=== PATIENT | female | born 1995 | race Asian ===

== ENCOUNTER 2025-06-16 15:24 | Emergency (ER) | payer OTHER, SELFPAY ==
--- OUTSIDE RECORDS SUMMARY | 2025-04-18 14:30 | XMS_ITS | Encounter Summary ---
Author Organization [employer] ([place], [place], [place], [place], [place]) Address [address] [place] [address] Care Team Providers Care Chronometer Assembler And Adjuster Name Role Phone Lyle Cormier DO Primary Care Provider [phone] Reason for Referral * Consultation (Routine) - Authorized Specialty Diagnoses / Procedures Referred By Lucia t Referred To Contact Behavioral Health Diagnoses Generalized anxiety disorder Major depressive disorder Borderline personality disorder (HCC) Lyle Cormier DO [address] [place], [place] [address], [address] [address] Phone: tel: fax: [facility] [address], [address] [place] [id number] Phone: tel: fax: Referral ID Status Reason Start Date Expiration Date Visits Requested Visits Authorized [id number] Authorized Specialty Services Required 04/18/2025 04/18/2026 1 1 * Consultation (Routine) - Authorized Specialty Diagnoses / Procedures Referred By Contac t Referred To Contact Neurology Diagnoses Migraine without aura and without status migrainosus, not intractable Lyle Cormier DO [address] [place], [place] [address] , [address] [address] Phone: tel: fax: [facility] Neurology - [address] [facility] [address] [place] [address] Phone: tel: fax: Referral ID Status Reason Start Date Expiration Date Visits Requested Visits Authorized [id number] Authorized Specialty Services Required 04/18/2025 04/18/2026 1 1 Reason for Visit * Reason Comments Establish Care Patient here to [facility] is not fasting today. Patient has a history of Migraines. Encounter Details Date Type Department Care Team (Late st Contact Info) Description 04/18/2025 3:30 PM EDT Office Visit [facility] [address] [place] [address] [address] [place] [address] Lyle Cormier DO [address] [facility] [address] [place] [address] Generalized anxiety disorder (Primary Dx); Major depressive disorder; Migraine without aura and without status migrainosus, not intractable; Overweight; Screening for endocrine, metabolic and immunity disorder; Screening for HIV (human immunodeficiency virus); Encounter for hepatitis C screening test for low risk patient; Borderline personality disorder (HCC) Social History Tobacco Use Types Packs/Day Years Used Date Smoking Tobacco: Never Assessed Comments Unknown Sex and Gender Information Value Date Recorded Sex Assigned at Not on file Legal Sex Female 11:50 AM CDT Gender Identity Not on file Sexual Orientation Not on file documented as of this encounter Last Filed Vital Signs Vital Sign Reading Time Taken Comments Blood Pressure 108/63 04/18/2025 3:24 PM EDT Pulse 60 04/18/2025 3:24 PM EDT Temperature 36.2 C (97.2 F) 04/18/2025 3:24 PM EDT Respiratory Rate 18 04/18/2025 3:24 PM EDT Oxygen Saturation 98% 04/18/2025 3:24 PM EDT Inhaled Oxygen Concentration - - Weight 80.3 kg (177 lb) 04/18/2025 3:24 PM EDT Height 165.1 cm (5' 5 ) 04/18/2025 3:24 PM EDT Body Mass Index 29.45 04/18/2025 3:24 PM EDT documented in this encounter Functional Status * Over the past 2 weeks, how often have you been bothered by any of the following problems? Question Answer Date of Assessment Author Little interest or pleasure in doing things More than half the days 04/18/2025 3:41 PM CDT Diamante Urbano Feeling down, depressed, or hopeless More than half the days 04/18/2025 3:41 PM CDT Diamante Urbano Patient Health Questionnaire-2 Score 4 04/18/2025 3:41 PM CDT Diamante Urbano * Question Answer Date of Assessment Author Trouble falling or staying a sleep, or sleeping too much Not at all 04/18/2025 3:41 PM CDT Diamante Urbano Feeling tired or having cole le energy Several days 04/18/2025 3:41 PM CDT Diamante Urbano Poor appetite or overeating Several days 04/18/2025 3: 41 PM CDT Diamante Urbano Feeling bad about yourself - or that you are a failure or have let yourself or your family down Not at all 04/18/2025 3:41 PM CDT Diamante Urbano Trouble concentrating on thi ngs, such as reading the newspaper or watching television Several days 04/18/2025 3:41 PM CDT Diamante Urbano Moving or speaking so slowly that other people could have noticed? Or the opposite - being so fidgety or restless that you have been moving around a lot more than usual. Not at all 04/18/2025 3:41 PM CDT Diamante Urbano Thoughts that you would be b brenden off or hurting yourself in some way Not at all 04/18/2025 3:41 PM CDT Diamante Urbano Patient Health Questionnaire -9 Score 7 04/18/2025 3:41 PM CDDiamante Shabazz * If you checked off any problems on this questionnaire so far, Question Answer Date of Assessment Author How difficult have these problems made it for you to do your work, take care of things at home, or get along with other people? Not difficult at all 04/18/2025 3:41 PM CDDiamante Shabazz * Over the last 2 weeks, how often have you been bothered by any of the following problems? Question Answer Date of Assessment Author Feeling nervous, anxious, or on edge 3 12/2024 3:00 PM CDT Prouse, Diamante Not being able to stop or co ntrol worrying 3 04/18/2025 3:00 PM CDT Prouse, Diamante Worrying too much about different things 3 04/18/2025 3:00 PM CDT Prouse, Diamante Trouble relaxing 3 04/18/2025 3:00 PM CDT P rouse, Diamante Being so restless that it is hard to sit still 1 04/18/2025 3:00 PM CDT Prouse, Diamante Becoming easily annoyed or irritable 0 12/2024 3:00 PM CDT Prouse, Diamante Feeling afraid as if somethi ng awful might happen 2 04/18/2025 3:00 PM CDT Projayce, Diamante ALEK-7 Total Score 15 04/18/2025 3:00 PM CDT Projayce, Diamante documented as of this encounter Progress Notes * Lyle Cormier, - 04/18/2025 3:30 PM EDT Subjective: Charlene Onofre is a 30 y.o. female. Chief Complaint Patient presents with Establish Care Patient here to Establish Care is not fasting today. Patient has a history of Migraines. The patient is coming in to establish care. The patient has a history of anxiety and migraines. Recently, having more frequent migraines. Normally takes Excedrin to assist. Pain is normally unilateral and behind her eye. Sensitivity to light and sound with nausea. Last for 24-48 hours. Recently in the past year, has been getting them 4-5 times a month. Made worse with poor sleep and stress. No sym ptoms today. No aura prior to the headaches started. The patient is scared about medications. Movedto the two years ago. Was seeing a therapist and psychiatrist in the past who started the Prozac. Was diagnosed with borderline personality disorder and generalized anxiety disorder. Has not seen any therapist for years, but continued Prozac through her past PCP in [place]. Reports being on quetiapine and stopped it in the past. Wants to stop the Prozac in the future. Outpatient Medications Prior to Visit Medication Sig Dispense Refill FLUoxetine (PROzac) 40 MG capsule Take 1 capsule (40 mg total) by mouth daily. No facility-administered medications prior to visit. Review of Systems Constitutional: Negative for chills and fever. HENT: Negative. Eyes: Positive for photophobia. Respiratory: Negative for cough, shortness of breath and wheezing. Cardiovascular: Negative for chest pain. Gastrointestinal: Positive for nausea. Negative for diarrhea and vomiting. Neurological: Positive for headaches. All other systems reviewed and are negative. No past medical history on file. No past surgical history on file. No family history on file. Social History: Objective: BP 108/63 (BP Location: Left arm, Patient Position: Sitting, Cuff Size: Adult) Pulse 60 Temp 97.2 ??F (36.2 ??C) (Skin) Resp 18 Ht 1.651 m (5' 5 ) Wt 80.3 kg (177 lb) SpO2 98% BMI 29.45kg/m?? Vision and Hearing: No results found. Physical Exam Vitals reviewed. Constitutional: General: She is not in acute distress. Appearance: Normal appearance. HENT: Head: Normocephalic. Right Ear: External ear normal. Left Ear: External ear normal. Nose: Nose normal. Eyes: Extraocular Movements: Extraocular movements intact. Conjunctiva/sclera: Conjunctivae normal. Pupils: Pupils are equal, round, and reactive to light. Cardiovascular: Rate and Rhythm: Normal rate and regular rhythm. Pulmonary: Effort: Pulmonary effort is normal. No respiratory distress. Breath sounds: Normal breath sounds. No wheezing, rhonchi or rales. Abdominal: General: Abdomen is flat. Musculoskeletal: Cervical back: Normal range of motion. Skin: Coloration: Skin is not pale. Findings: No erythema or rash. Neurological: Mental Status: She is alert and oriented to person, place, and time. Mental status is at baseline. Psychiatric: Mood and Affect: Mood is anxious. Behavior: Behavior normal. Thought Content: Thought content normal. Judgment: Judgment normal. No results found for: CBCDIF , [id number] , LIPIDS , LABA1C , TSH Radiology Results (last 7 days) No results found for the last 168 hours. Assessment: 1. Generalized anxiety disorder 2. Major depressive disorder 3. Migraine without aura and without status migrainosus, not intractable 4. Overweight 5. Screening for endocrine, metabolic and immunity disorder 6. Screening for HIV (human immunodeficiency virus) 7. Encounter for hepatitis C screening test for low risk patient 8. Borderline personality disorder (HCC) Discussion and Summary: The patient is notably anxious in office today. The way that she describes her headaches sounds very typical for a migraine disorder. However, she is hesitant to start any new medications that may assist her symptoms such as sumatriptan or topiramate. Because of her hesitancy to start any medications, we will refer the patient to neurology to see if they have any alternative therapeutic recommenda tions. In a similar vein, the patient does not seem to have adequate control of her anxiety on Prozac, even if she wants to eventually wean off of the medication. I told the patient that I do not think it is a good idea to try weaning off of the medication at this time based on my clinical opinion. We will refer the patient to behavioral health for counseling services. We will hold off on a psychiatry referral for now per patient preference. However, if counseling and/or myself agree that medication adjustment is warranted, we may recommend seeing the psychiatrist at some point in the future. Baseline fasting labs ordered as noted below. Will plan to see the patient back in 1 to 2 months for an annual physical. Depression Screen: (PHQ9 > 10 Likely Major Depression, 5-9 = Mild depression, 10-14= Moderate depression, 15-19 Moderately severe depression, > 20 =severe depression) PHQ2 = Patient Health Questionnaire-2 Score: 4 PHQ9 = Patient Health Questionnaire-9 Score: 7 Plan Provider Interpretation: Positive. referral to mental health provider Anxiety Screening: (Score 0-4: Minimal Anxiety. Score 5-9: Mild Anxiety. Score 10-14: Moderate Anxiety. Score greater than 15: Severe Anxiety.) ALEK-7: ALEK-7 Total Score: 15 (04/18/2025 3:00 PM) Plan Provider Interpretation: Positive. On Prozac. Referral to for additional therapy. Plan: Discontinued Medications No medications on file New Prescriptions No medications on file Modified Medications Modified Medication Previous Medication FLUOXETINE (PROZAC) 40 MG CAPSULE FLUoxetine (PROzac) 40 MG capsule Take 1 capsule (40 mg total) by mouth daily. Take 1 capsule (40 mg total) by mouth daily. Orders Placed This Encounter Procedures CBC with platelet count + automated diff Standing Status: Future Number of Occurrences: 1 Standing Expiration Date: 04/18/2026 Order Specific Question: Release to patient Answer: Immediate [1] Comprehensive metabolic panel Standing Status: Future Number of Occurrences: 1 Standing Expiration Date: 07/18/2025 Lipid panel Standing Status: Future Number of Occurrences: 1 Standing Expiration Date: 04/18/2026 Hemoglobin A1c Standing Status: Future Number of Occurrences: 1 Standing Expiration Date: 04/18/2026 Order Specific Question: Release to patient Answer: Immediate [1] Hepatitis C antibody Standing Status: Future Number of Occurrences: 1 Standing Expiration Date: 04/18/2026 Order Specific Question: Release to patient Answer: Immediate [1] HIV-1 Antigen with HIV-1/2 Antibody Standing Status: Future Number of Occurrences: 1 Standing Expiration Date: 04/18/2026 Order Specific Question: Release to patient Answer: Immediate [1] TSH W/REFLEX TO FT4 Standing Status: Future Number of Occurrences: 1 Standing Expiration Date: 04/18/2026 Order Specific Question: Release to patient Answer: Immediate [1] Ambulatory referral to Neurology Standing Status: Future Standing Expiration Date: 04/18/2026 Referral Priority: Routine Referral Type: Consultation Referral Reason: Specialty Services Required Requested Specialty: Neurology Number of Visits Requested: 1 Ambulatory referral to Behavioral Health Standing Status: Future Standing Expiration Date: 04/18/2026 Referral Priority: Routine Referral Type: Consultation Referral Reason: Specialty Services Required Requested Specialty: Behavioral Health Number of Visits Requested: 1 Return in about 4 weeks (around 05/16/2025) for Annual Physical. This note was partially written using the assistance of [employer] dictation. While an effort to proofread the note has been performed, dictation errors may still be present. Lyle Cormier DO Primary Care Physician [place] [address], [address] [place] [id number] 04/18/2025 3:28 PM documented in this encounter Miscellaneous Notes * Result Encounter Note - Lyle Corimer DO - 04/18/2025 3:30 PM EDT Let patient know: Your labs show elevation in your LDL cholesterol. I'm not going to prescribe any medications yet, but I would encourage regular aerobic exercise and healthy food options, in particular eating more foods high in omega-3 fatty acids instead of fatty/greasy foods. We should continue to regularly monitor your cholesterol over time. documented in this encounter Plan of Treatment Scheduled Referrals Name Type Priority Associated Diagnoses Orde r Schedule Ambulatory referral to Neurology Outpatient Referral Routine Migraine without aura and without status migrainosus, not intractable Expected: 04/18/2025, Expires: 04/18/2026 Ambulatory referral to Behavioral Health Outpatient Referral Routine Generalized anxiety disorder Major depressive disorder Borderline personality disorder (HCC) Expected: 04/18/2025, Expires: 04/18/2026 documented as of this encounter Procedures Procedure Name Priority Date/Time Associated Diagnosis Comments TSH W/REFLEX TO FT4 Routine 05/09/2025 1 1:07 AM EDT Generalized anxiety disorder Major depressive disorder Overweight HIV-1 ANTIGEN WITH HIV-1/2 ANTIBODY Routine 05/09/2025 11:07 AM EDT Screening for HIV (human immunodeficiency virus) HEPATITIS C ANTIBODY Routine 05/09/2025 11:07 AM EDT Encounter for hepatitis C screening test for low risk patient CBC W/PLT COUNT & AUTO DIFFERENTIAL Routine 05/09/2025 11:07 AM EDT Overweight Screening for endocrine, metabolic and immunity disorder HEMOGLOBIN A1C Routine 05/09/2025 11:07 AM EDT Overweight Screening for endocrine, metabolic and immunity disorder LIPID PANEL Routine 05/09/2025 11:07 AM EDT Overweight Screening for endocrine, metabolic and immunity disorder COMPREHENSIVE METABOLIC PANEL Routine 05/09/2025 11:07 AM EDT Overweight Screening for endocrine, metabolic and immunity disorder documented in this encounter Results * TSH W/REFLEX TO FT4 (05/09/2025 11:07 AM EDT) TSH 3.760 0.450 - 4.500 uIU/mL [facility] 05/09/2025 11:0 7 AM EDT 05/09/2025 Narrative [facility] - 05/10/2025 10:07 AM EDT Performed at: [address] [place] [id number] Front End Web Developer: Spencer Paniagua PhD, Phone: [phone] [employer] DO LAB BLOOD ORDERABLES Final Resul t Performing Organization Address City/[facility] Co de Phone Number [facility] * HIV-1 Antigen with HIV-1/2 Antibody (05/09/2025 11:07 AM EDT) [facility] HIV Screen 4th Generation wRfx Non Reactive Non Reactive [facility] Comment: HIV-1/HIV-2 antibodies and HIV-1 p24 antigen were NOT detected. There is no laboratory evidence of HIV infection. HIV Negative Blood 05/09/2025 11:0 7 AM EDT 05/09/2025 Narrative [facility] - 05/10/2025 10:07 AM EDT Performed at: [address] [id number] Front End Web Developer: Spencer Paniagua PhD, Phone: [phone] [employer] [facility] LAB BLOOD ORDERABLES Final Resul t Performing Organization Address [facility] de Phone Number [facility] * Hepatitis C antibody (05/09/2025 11:07 AM EDT) Pathologist [facility] Hep C Virus Ab Non Reactive Non Reactive [facility] Comment: HCV antibody alone does not differentiate between previously resolved infection and active infection. Equivocal and Reactive HCV antibody results should be followed up with an HCV RNA test to support the diagnosis of active HCV infection. Blood 05/09/2025 11:0 7 AM EDT 05/09/2025 Narrative [facility] - 05/10/2025 10:07 AM EDT Performed at: [address] [place] [id number] Front End Web Developer: Spencer Paniagua PhD, Phone: [phone] [employer] DO LAB BLOOD ORDERABLES Final Resul t Performing Organization Address City/[facility]/ZIP Co de Phone Number [facility] * Hemoglobin A1c (05/09/2025 11:07 AM EDT) Pathologist [facility] Hemoglobin A1c 5.5 4.8 - 5.6 % [facility] Comment: Prediabetes: 5.7 - 6.4 Diabetes: >6.4 Glycemic control for adults with diabetes: <7.0 Blood 05/09/2025 11:0 7 AM EDT 05/09/2025 Narrative [facility] - 05/10/2025 10:07 AM EDT Performed at: 01 - [address] [id number] Front End Web Developer: Spencer Paniagua PhD, Phone: [phone] [employer] DO LAB BLOOD ORDERABLES Final Resul t Performing Organization Address [facility] de Phone Number [facility] * (ABNORMAL) Lipid panel (05/09/2025 11:07 AM EDT) [facility] Cholesterol, Total 229(H) 100 - 199 mg/dL [facility] Triglycerides 84 0 - 149 mg/dL [facility] HDL Cholesterol 46 >39 mg/dL [facility] VLDL Cholesterol Aldo 15 5 - 40 mg/dL [facility] LDL Calculated 168(H) 0 - 99 mg/dL [facility] Blood 05/09/2025 11:0 7 AM EDT 05/09/2025 Narrative [facility] - 05/10/2025 10:07 AM EDT Performed at: 01 - [address] [id number] Front End Web Developer: Spencer Paniagua PhD, Phone: [phone] [employer] DO LAB BLOOD ORDERABLES Final Resul t Performing Organization Address [facility]/ZIP Co de Phone Number [facility] * (ABNORMAL) Comprehensive metabolic panel (05/09/2025 11:07 AM EDT) Glucose, Serum 82 70 - 99 mg/dL [facility] BUN 11 6 - 20 mg/dL [facility] Creatinine, Serum 0.78 0.57 - 1.00 mg/dL [facility] EGFR 105 >59 mL/min/1.73 [facility] BUN/Creatinine Ratio 14 9 - 23 [facility] Sodium, Serum 136 134 - 144 mmol/L [facility] Potassium, Serum 4.2 3.5 - 5.2 mmol/L [facility] Chloride, Serum 102 96 - 106 mmol/L [facility] Carbon Dioxide, Total 17(L) 20 - 29 mmol/L [facility] Calcium, Serum 9.4 8.7 - 10.2 mg/dL [facility] Protein, Total, Serum 7.3 6.0 - 8.5 g/dL [facility] Albumin, Serum 4.5 4.0 - 5.0 g/dL [facility] Globulin, Total 2.8 1.5 - 4.5 g/dL [facility] Bilirubin, Total 0.4 0.0 - 1.2 mg/dL [facility] Alkaline Phosphatase, S 63 41 - 116 IU/L [facility] Comment:Please note refere nce interval change AST (SGOT) 34 0 - 40 IU/L [facility] ALT (SGPT) 38(H) 0 - 32 IU/L [facility] Blood 05/09/2025 11:0 7 AM EDT 05/09/2025 Narrative [facility] - 05/10/2025 10:07 AM EDT Performed at: 01 - [facility] [id number] Front End Web Developer: Spencer Paniagua PhD, Phone: [phone] us Lyle Cormier DO LAB BLOOD ORDERABLES Final Resul t [facility] * (ABNORMAL) CBC with platelet count + automated diff (05/09/2025 11:07 AM EDT) WBC 7.4 3.4 - 10.8 x10E3/uL [facility] RBC 5.01 3.77 - 5.28 x10E6/uL [facility] Hemoglobin 14.1 11.1 - 15.9 g/dL [facility] Hematocrit 44.2 34.0 - 46.6 % [facility] MCV 88 79 - 97 fL [facility] MCH 28.1 26.6 - 33.0 pg [facility] MCHC 31.9 31.5 - 35.7 g/dL [facility] RDW 13.4 11.7 - 15.4 % [facility] Platelets 310 150 - 450 x10E3/uL [facility] % Neutros 45 Not Estab. % [facility] % Lymphs 45 Not Estab. % [facility] % Monos 7 Not Estab. % [facility] % Eos 2 Not Estab. % [facility] % Baso 1 Not Estab. % [facility] # Neutros 3.3 1.4 - 7.0 x10E3/uL [facility] # Lymphs 3.3(H) 0.7 - 3.1 x10E3/uL [facility] # Monos 0.6 0.1 - 0.9 x10E3/uL [facility] # Eos 0.1 0.0 - 0.4 x10E3/uL [facility] Baso (Absolute) 0.1 0.0 - 0.2 x10E3/uL [facility] % Immature Grans 0 Not Estab. % [facility] # Immature Grans 0.0 0.0 - 0.1 x10E3/uL [facility] Blood 05/09/2025 11:0 7 AM EDT 05/09/2025 Narrative [facility] - 05/10/2025 10:07 AM EDT Performed at: 01 - [facility] [address] [id number] Front End Web Developer: Spencer Paniagua PhD, Phone: [phone] Lyle Cormier DO LAB BLOOD ORDERABLES Final Resul t [facility] documented in this encounter Visit Diagnoses Diagnosis Generalized anxiety disorder- Primary Major depressive disorder Major depressive disorder, single episode, unspecified Migraine without aura and without status migrainosus, not intractable Overweight Screening for endocrine, metabolic and immunity disorder Screening for HIV (human immunodeficiency virus) Special screening examination for other specified viral diseases Encounter for hepatitis C screening test for low risk patient Borderline personality disorder (HCC) Borderline personality disorder documented in this encounter Care Teams Chronometer Assembler And Adjuster Relationship Specialty Start Date End Date Lyle Cormier DO [address] , [address] [address] PCP - General Family Medicine 04/18/25 documented as of this encounter
[2025-06-16] VITALS (7 sets, daily range): BP systolic 104–132; BP diastolic 69–78; PULSE 56–70; RESP 16–24; TEMP 36.6; O2SAT 99–100; BMI 29.0
--- NOTE | 2025-06-16 16:03 | ECG_ITS ---
APPROVED REPORT Exam: Resting ECG HR:64 bpm ECG Measurements Heart Rate 64 AXES WY 137 P 63 QRSd 93 QRS 70 QT 431 T 62 QTc 440 Conclusion SINUS RHYTHM WITH MARKED SINUS ARRHYTHMIA BORDERLINE ECG UNCONFIRMED REPORT Normal sinus rhythm. No ST elevation or depression. QTc of 4 and 40 Electronically signed by : NABEEL LUI, 06/19/2025 21:04:51
--- OUTSIDE RECORDS SUMMARY | 2025-06-16 16:24 | XMS_ITS | Clinical Summary ---
Author Organization [employer] ([place], [place], [place], [place], [place]) Address [address] [place] [address] Care Team Providers Care Professor Of Education Name Role Phone Lyle Cormier DO Primary Care Provider [phone] Allergies No known active allergies Medications * This document contains information received from the source organization and may not represent a complete record from that organization. FLUoxetine (PROzac) 40 MG capsuleIndicati ons:Generalized anxiety disorder,Major depressive disorder Take 1 capsule (40 mg total) by mouth daily. 90 capsule 3 04/18/2025 Active Active Problems Problem Noted Date Diagnosed Date Adjustment disorder with mixed anxiety and depre ssed mood 05/23/2025 Generalized anxiety disorder 04/18/2025 Major depressive disorder 04/18/2025 Migraines 04/18/2025 Encounters * This document contains information received from the source organization and may not represent a complete record from that organization. Date Type Department Care Team Description 04/18/2025 3:30 PM EDT Office Visit [facility] Primary Care [address] [place] [phone] Lyle Cormier DO Generalized anxiety disorder (Primary Dx); Major depressive disorder; Migraine without aura and without status migrainosus, not intractable; Overweight; Screening for endocrine, metabolic and immunity disorder; Screening for HIV (human immunodeficiency virus); Encounter for hepatitis C screening test for low risk patient; Borderline personality disorder (HCC) from Last 3 Months Social History Tobacco Use Types Packs/Day Years Used Date Smoking Tobacco: Never Assessed [facility] - Mental Health Answer Date Recorde d Little interest or pleasure in doing things More than half the days 05/26/2025 Feeling down, depressed, or hopeless More than h agustina the days 05/26/2025 Feeling of Stress Not on file 05/26/2025 Comments Unknown Sex and Gender Information Value Date Recorded Sex Assigned at Not on file Legal Sex Female 11:50 AM CDT Gender Identity Not on file Sexual Orientation Not on file Last Filed Vital Signs Vital Sign Reading [...] Mass Index 29.45 04/18/2025 3:24 PM EDT Plan of Treatment Health Maintenance Due Date Last Done Comments Tobacco Cessation Counseling and Screening (12+) 2008 DTAP/TDAP/TD VACCINES (1 - Tdap) 02/03/2015 Pap Smear 02/03/2017 COVID-19 VACCINE ( - 2023-2 5 season) 2025 Influenza Vaccine (#1) 2025 HIV Screening Completed 05/09/2025 Hepatitis C Screening Completed 05/09/2025 Pneumococcal Vaccine: 0-49 Years Aged Out No longer eligible based on patient's age to complete this topic Procedures Procedure Name Priority Date/Time Associated Diagnosis Comments TSH W/REFLEX TO FT4 Routine 05/09/2025 1 1:07 AM EDT Generalized anxiety disorder Major depressive disorder Overweight HIV-1 ANTIGEN WITH HIV-1/2 ANTIBODY Routine 05/09/2025 11:07 AM EDT Screening for HIV (human immunodeficiency virus) HEPATITIS C ANTIBODY Routine 05/09/2025 11:07 AM EDT Encounter for hepatitis C screening test for low risk patient HEMOGLOBIN A1C Routine 05/09/2025 11:07 AM EDT Overweight Screening for endocrine, metabolic and immunity disorder LIPID PANEL Routine 05/09/2025 11:07 AM EDT Overweight Screening for endocrine, metabolic and immunity disorder COMPREHENSIVE METABOLIC PANEL Routine 05/09/2025 11:07 AM EDT Overweight Screening for endocrine, metabolic and immunity disorder CBC W/PLT COUNT & AUTO DIFFERENTIAL Routine 05/09/2025 11:07 AM EDT Overweight Screening for endocrine, metabolic and immunity disorder from Last 3 Months Results * TSH W/REFLEX TO FT4 (05/09/2025 11:07 AM EDT) Pathologist [facility] [place] TSH 3.760 0.450 - 4.500 uIU/mL [facility] 05/09/2025 11:0 7 AM EDT 05/09/2025 Narrative [facility] - 05/10/2025 10:07 AM EDT Performed at: [address] [id number] Coin Machine Service Repairer: Spencer Paniagua PhD, Phone: [phone] Lyle Burlesonp DO LAB BLOOD ORDERABLES Final Resul t [facility] * HIV-1 Antigen with HIV-1/2 Antibody (05/09/2025 11:07 AM EDT) Pathologist [facility] [place] HIV Screen 4th Generation wRfx Non Reactive Non Reactive [facility] Comment: HIV-1/HIV-2 antibodies and HIV-1 p24 antigen were NOT detected. There is no laboratory evidence of HIV infection. HIV Negative Blood 05/09/2025 11:0 7 AM EDT 05/09/2025 Narrative [facility] - 05/10/2025 10:07 AM EDT Performed at: [address] [id number] Coin Machine Service Repairer: Spencer Paniagua PhD, Phone: [phone] [employer] DO LAB BLOOD ORDERABLES Final Resul t Performing Organization Address City/[facility]/ZIP Co de Phone Number [facility] * Hepatitis C [...] 10:07 AM EDT Performed at: 01 - [address] [id number] Coin Machine Service Repairer: Spencer Paniagua PhD, Phone: [phone] varinodep DO LAB BLOOD ORDERABLES Final Resul t Performing Organization Address City/[facility] Co de Phone Number [facility] * (ABNORMAL) CBC with platelet count + automated diff (05/09/2025 11:07 AM EDT) [facility] WBC 7.4 3.4 - 10.8 x10E3/uL [facility] [...] - 05/10/2025 10:07 AM EDT Performed at: [address] [place] [id number] Coin Machine Service Repairer: Spencer Paniagua PhD, Phone: [phone] Lyle Casa DO LAB BLOOD ORDERABLES Final Resul t Performing Organization Address [facility] de Phone Number [facility] * Hemoglobin A1c (05/09/2025 11:07 AM EDT) [facility] Hemoglobin A1c 5.5 4.8 - 5.6 % [facility] Comment: Prediabetes: 5.7 - 6.4 Diabetes: >6.4 Glycemic control for adults with diabetes: <7.0 Blood 05/09/2025 11:0 7 AM EDT 05/09/2025 Narrative [facility] - 05/10/2025 10:07 AM EDT Performed at: [address] [id number] Coin Machine Service Repairer: Spencer Paniagua PhD, Phone: [phone] [facility] BLOOD ORDERABLES Final Resul t Performing Organization Address [facility] de Phone Number [facility] * (ABNORMAL) Lipid panel (05/09/2025 11:07 AM EDT) Pathologist [facility] [place] Cholesterol, Total 229(H) 100 - 199 mg/dL [facility] Triglycerides 84 0 - 149 mg/dL [facility] HDL Cholesterol 46 >39 mg/dL [facility] VLDL Cholesterol Aldo 15 5 - 40 mg/dL [facility] LDL Calculated 168(H) 0 - 99 mg/dL [facility] Blood 05/09/2025 11:0 7 AM EDT 05/09/2025 Narrative [facility] - 05/10/2025 10:07 AM EDT Performed at: 01 - [address] [id number] Coin Machine Service Repairer: Spencer Paniagua PhD, Phone: [phone] us Lyle Cormier DO LAB BLOOD ORDERABLES Final Resul t [facility] * (ABNORMAL) Comprehensive metabolic panel (05/09/2025 11:07 AM EDT) Pathologist [facility] [place] Glucose, Serum 82 70 - 99 mg/dL [...] AM EDT Performed at: 01 - [facility] [address] [id number] Coin Machine Service Repairer: Spencer Paniagua PhD, Phone: [phone] us Lyle Cormier DO LAB BLOOD ORDERABLES Final Resul t [facility] from Last 3 [place] [phone] Care Teams Professor Of Education Relationship Specialty Start Date End Date Lyle Cormier DO [address] , [facility] [address] [place] [address] PCP - General Family Medicine 04/18/25
--- OUTSIDE RECORDS SUMMARY | 2025-06-16 16:24 | XMS_ITS | Referral Summary ---
Author Organization [employer] ([place], [place], [place], [place], [place]) Address [address] [place] [address] Care Team Providers Care Waterproof Bag Cutting Machine Operator Name Role Phone Lyle Cormier DO Primary Care Provider [phone] Encounters * This document contains information received from the source organization and may not represent a complete record from that organization. Date Type Department Care Team Description 04/18/2025 3:30 PM EDT Office Visit [facility] Primary Care [address] [place] [phone] Lyle Cormier DO Generalized anxiety disorder (Primary Dx); Major depressive disorder; Migraine without aura and without status migrainosus, not intractable; Overweight; Screening for endocrine, metabolic and immunity disorder; Screening for HIV (human immunodeficiency virus); Encounter for hepatitis C screening test for low risk patient; Borderline personality disorder (HCC) from Last 3 Months Allergies No known active allergies Medications * [...] 04/18/2025 Major depressive disorder 04/18/2025 Migraines 04/18/2025 Social History Tobacco Use Types Packs/Day Years Used Date Smoking Tobacco: Never Assessed [facility] - Mental Health Answer Date Recorde [...] 04/18/2025 3:24 PM EDT Plan of Treatment Not on file Procedures Procedure Name Priority Date/Time Associated Diagnosis [...] W/REFLEX TO FT4 (05/09/2025 11:07 AM EDT) [facility] TSH 3.760 0.450 - 4.500 uIU/mL [facility] 05/09/2025 11:0 7 AM EDT 05/09/2025 Narrative [facility] - 05/10/2025 10:07 AM EDT Performed at: [address] [id number] Firearms Model Maker: Spencer Paniagua PhD, Phone: [phone] Lyle Casa DO LAB BLOOD ORDERABLES Final Resul t Performing Organization Address [facility] Co de Phone Number [facility] * HIV-1 Antigen with HIV-1/2 Antibody (05/09/2025 11:07 AM EDT) [facility] HIV Screen 4th Generation wRfx Non Reactive Non Reactive [facility] Comment: HIV-1/HIV-2 antibodies and HIV-1 p24 antigen were NOT detected. There is no laboratory evidence of HIV infection. HIV Negative Blood 05/09/2025 11:0 7 AM EDT 05/09/2025 Narrative [facility] - 05/10/2025 10:07 AM EDT Performed at: 01 - [address] [id number] Firearms Model Maker: Spencer Paniagua PhD, Phone: [phone] Lyle Casa DO LAB BLOOD ORDERABLES Final Resul t Performing Organization Address City/[facility]/ZIP Co de Phone Number [facility] * Hepatitis C antibody (05/09/2025 11:07 AM EDT) [facility] Hep C Virus Ab Non Reactive Non [...] 10:07 AM EDT Performed at: 01 - [facility] [id number] Firearms Model Maker: Spencer Paniagua PhD, Phone: [phone] us Lyle Cormier DO LAB BLOOD ORDERABLES [...] - 05/10/2025 10:07 AM EDT Performed at: [address] [place] [id number] Firearms Model Maker: Spencer Paniagua PhD, Phone: [phone] Lyle Casa DO LAB BLOOD ORDERABLES Final Resul t Performing Organization Address [facility]/ZIP Co de Phone Number [facility] * Hemoglobin A1c (05/09/2025 11:07 AM EDT) Pathologist [facility] Hemoglobin A1c 5.5 4.8 - 5.6 % [facility] Comment: Prediabetes: 5.7 - 6.4 Diabetes: >6.4 Glycemic control for adults with diabetes: <7.0 Blood 05/09/2025 11:0 7 AM EDT 05/09/2025 Narrative [facility] - 05/10/2025 10:07 AM EDT Performed at: [address] [place] [id number] Firearms Model Maker: Spencer Paniagua PhD, Phone: [phone] Lyle Cormier DO LAB BLOOD ORDERABLES Final Resul t Performing Organization Address [facility] de Phone Number [facility] * (ABNORMAL) Lipid panel (05/09/2025 11:07 AM EDT) Cholesterol, Total 229(H) 100 - 199 mg/dL [facility] Triglycerides 84 0 - 149 mg/dL [facility] HDL Cholesterol 46 >39 mg/dL [facility] VLDL Cholesterol Aldo 15 5 - 40 mg/dL [facility] LDL Calculated 168(H) 0 - 99 mg/dL [facility] Blood 05/09/2025 11:0 7 AM EDT 05/09/2025 Narrative [facility] - 05/10/2025 10:07 AM EDT Performed at: 01 - [facility] [address] [id number] Firearms Model Maker: Spencer Paniagua PhD, Phone: [phone] [employer] DO LAB BLOOD ORDERABLES Final Resul t [facility] * (ABNORMAL) Comprehensive metabolic panel (05/09/2025 11:07 AM EDT) [facility] Glucose, Serum 82 70 - 99 mg/dL [...] AM EDT Performed at: 01 - [facility] [address] [id number] Firearms Model Maker: Spencer Paniagua PhD, Phone: [phone] Lyle Casa DO LAB BLOOD ORDERABLES Final Resul t [facility] from Last 3 Months Insurance [employer] Care Teams Waterproof Bag Cutting Machine Operator Relationship Specialty Start Date End Date Lyle Cormier DO [address], [facility] [address] [place] [address] PCP - General Family Medicine 04/18/25
--- NOTE | 2025-06-16 18:03 | HMH.EDGENADL ---
Discharge Plan Disposition Patient Disposition: Home, Self-Care Prescriptions Prescriptions: No Action fluoxetine 40 mg Capsule 40 mg PO DAILY Referrals Follow up/Referrals: Provider,Referral, MD [Primary Care Provider, Medical] - See instructions Activity Restrictions/Add. Instructions Additional Instructions/Restrictions: Your workup today showed very mild low thyroid hormone. I encourage you to follow-up with your primary care doctor to follow this. If you develop any new or worsening symptoms, or if you become concerned for your health for any reason, return to the emergency department for evaluation Clinical Impressions Clinical Impression: Arm pain, left, Low T4 Print Language Print Language: Romanian Discharge ED Provider: Gino Clark General Adult HPI General Chief complaint: PAIN Stated complaint: Pain Left Arm/SOA/ Chest Tightness Time Seen by Provider: 06/16/25 18:00 Mode of Arrival: Ambulatory Source of Information: Patient Description of Symptoms (Recalled from ER Triage Doc. by RN): Pt was at work and felt a sudden sharp pain in her left arm that didnt go away. Pt states she felt this initial pain around [id number] this afternoon. Pt states she has been having anxiety since this morning with on and off shortness of breath, but states this is normal as she has some pretty bad anxiety. No cardiac history. History of Present Illness HPI narrative: Charlene Onofre is a 30-year-old female with a history of anxiety and chronic shortness of breath who presents to the emergency department for complaints of episode of left arm numbness and tingling while at work today. Patient states that she was at work at approximately noon when she developed numbness and tingling in her left elbow. She states that the pain started in her forearm/wrist and spread up to her elbow and shoulder over the next 3 to 4 hours but has since mostly resolved. She states that she did get very anxious and they checked her blood pressure at work and it was normal. She denies any tobacco use or heart history. She takes fluoxetine but no other medications. She denies any trauma or pain in the mid neck. She states that this is never happened before. Related Data Home Medications ?Medication ?Instructions ?Recorded ?Confirmed fluoxetine 40 mg capsule 40 mg PO DAILY 06/16/25 06/16/25 Allergies Allergy/AdvReac Type Severity Reaction Status Date / Time No Known Allergies Allergy Verified 06/16/25 16:06 [facility] Disclaimer: The information contained in this section may have been updated after the patient was seen, as this information can be updated by other users. Social History Smoking Status: Never smoker alcohol intake: never current occupational status: employed Travel in the last 8 weeks?: None ROS Obtained: Yes Systems reviewed as appropriate & no additional complaints except as documented Physical Exam General General appearance: alert, in no apparent distress and anxious Head Head exam: atraumatic Eye Eye exam: Present normal appearance ENT ENT exam: Present normal external ear exam Neck Neck exam: Present full ROM Chest Chest inspection: Present symmetric chest wall rise Respiratory Respiratory exam: Present normal lung sounds bilaterally; Absent respiratory distress Cardiovascular Cardiovascular exam: Present regular rate and normal rhythm Abdominal Exam Abdominal exam: Present soft; Absent tenderness or guarding Extremities Exam Extremities exam: Present normal inspection Back Exam Back exam: Present normal inspection Neurological Exam Neurological exam: Present alert, oriented X3 and other (5 out of 5 butcher assistant strength in bilateral upper extremities, 5 out of 5 strength with flexion extension bilateral upper extremities. Sensation intact and equal bilateral upper extremities.) Psychiatric Psychiatric exam: Present normal affect Skin Skin exam: Present warm and dry Medical Decision Making Medical Records Screening: Per USPSTF and CDC recommendations, given the prevalence of disease in our region, it is our hospital?s policy to screen for HIV and viral Hepatitis for all patients aged 18 and over and those with ongoing risk factors. Ananth Inquiry Pt receiving controlled substance: No Vital Signs: 06/16/25 15:58 06/16/25 16:03 06/16/25 18:30 Temperature 97.8 F Temperature Source Temporal Artery Scan Pulse Rate 70 56 L Pulse Rate [Right] 63 Respiratory Rate 24 18 Blood Pressure 132/78 114/76 Blood Pressure [Right Arm] 132/78 Blood Pressure Mean Blood Pressure Mean [Right Arm] 96 Blood Pressure Source Automatic Cuff Blood Pressure Source [Right Arm] Automatic Cuff Blood Pressure Position Sitting Blood Pressure Position [Right Arm] Sitting 02 Sat by Pulse Oximetry 100 100 100 Oxygen Delivery Method Room Air Room Air Room Air 06/16/25 19:00 06/16/25 19:15 06/16/25 19:30 Temperature Temperature Source Pulse Rate 62 Pulse Rate [Right] Respiratory Rate Blood Pressure 113/71 104/69 L Blood Pressure [Right Arm] Blood Pressure Mean 89 80 Blood Pressure Mean [Right Arm] Blood Pressure Source Blood Pressure Source [Right Arm] Blood Pressure Position Blood Pressure Position [Right Arm] 02 Sat by Pulse Oximetry 99 Oxygen Delivery Method Room Air Lab Data Lab Results 06/16/25 18:33: WBC 8.0, RBC 4.85, Hgb 13.9, Hct 39.7, MCV 81.9, MCH 28.7, MCHC 35.0, RDW 13.6, Plt Count 379, MPV 11.6 H, Neut % (Auto) 52.5, Lymph % (Auto) 37.7, [place] % (Auto) 7.5, Eos % (Auto) 1.5, Baso % (Auto) 0.7, Neut # (Auto) 4.2, Lymph # (Auto) 3.0, [place] # (Auto) 0.6, Eos # (Auto) 0.1, Baso # (Auto) 0.1, Sodium 136, Potassium 3.9, Chloride 103, Carbon Dioxide 26, Anion Gap 10.9, BUN 16, Creatinine 0.70, Estimated Creat Clear 148, Estimated GFR 99, Est GFR ( Amer) 120, Glucose 88, Calcium 9.5, Magnesium 2.0, Total Bilirubin 0.6, AST 39 H, ALT 43, Alkaline Phosphatase 57, Troponin I < 0.01, Total Protein 8.8 H, Albumin 4.8, Globulin 4.0 H, Albumin/Globulin Ratio 1.2, TSH 1.80, Free T4 0.73 L 06/16/25 18:33 06/16/25 18:33 Orders (Tests/Meds): ORDERS Category Date Time Status CBC w/Auto Diff [Complete Blood Count Auto Diff] Stat Lab 06/16/25 18:33 Completed CMP [Comprehensive Metabolic Panel] Stat Lab 06/16/25 18:33 Completed Free T4 (Free Thyroxine) Stat Lab 06/16/25 18:33 Completed Magnesium Stat Lab 06/16/25 18:33 Completed TSH [Thyroid Stimulating Hormone] Stat Lab 06/16/25 18:33 Completed Troponin I Q3H Lab 06/16/25 21:30 Ordered Troponin I Q3H Lab 06/17/25 00:30 Ordered Troponin I Stat Lab 06/16/25 18:33 Completed ECG Data Tracing #1: I reviewed this ECG and interpreted as documented below: Normal sinus rhythm. No ST elevation or depression. QTc of 440 Medical Decision Narrative: Charlene Onofre is a 30-year-old female with a history of anxiety and chronic shortness of breath who presents to the emergency department for complaints of episode of left arm numbness and tingling while at work today. Patient states that she was at work at approximately noon when she developed numbness and tingling in her left elbow. She states that the pain started in her forearm/wrist and spread up to her elbow and shoulder over the next 3 to 4 hours but has since mostly resolved. She states that she did get very anxious and they checked her blood pressure at work and it was normal. She denies any tobacco use or heart history. She takes fluoxetine but no other medications. She denies any trauma or pain in the mid neck. She states that this is never happened before. On arrival, patient is normotensive, heart rate within normal limits, breathing 18 times a minute, oxygen saturation 100% on room air. Physical exam, stated above, revealed overall well-appearing female in no distress. Her neurological exam is reassuring without any weakness or sensory deficits in the upper extremities. She has no midline cervical spine tenderness or step-offs. Cardiopulmonary Tony without murmurs or rubs. No wheezing, rales or rhonchi. Differential diagnosis includes, but is not limited to: ACS, pneumonia, pneumothorax, panic attack, cervical radiculopathy, electrolyte derangement, metabolic derangement, among others. Low concern for pulmonary embolism as patient is PERC negative. Workup in the emergency room included: EKG, chest x-ray, TSH/free T4, CBC with differential, CMP, troponin EKG without evidence of ischemia. See interpretation above Patient is refusing chest x-ray at this time. CBC unremarkable nonactionable, electrolytes within normal limits. No LEXY. Mildly elevated AST of 39 but liver enzymes grossly unremarkable nonactionable. Magnesium normal at 2.0. Troponin less than 0.01. TSH normal at 1.8 and free T4 very mildly low at 0.73. I do not feel that her mildly low T4 is contributing to her symptoms significantly at this time but should be followed closely. I discussed her workup with her and feel that she is appropriate for discharge at this time. I encouraged her to follow-up with her primary care doctor. Patient is eager to get home. Return precautions were given. All questions were answered. She demonstrated understanding and was in agreement this plan. She was then discharged from the emergency department in stable condition peer. Critical Care Critical Care Time Critical Care Time: No
[2025-06-16 18:41] LABS: Hematocrit 39.7 % (37.0-47.0); Hemoglobin 13.9 g/dL (12.2-16.2); Immature Granulocytes % 0.1 %; Mean Corpuscular HGB Conc 35.0 g/dL (31.8-35.4); Mean Corpuscular Hemoglobin 28.7 pg (27.0-31.2); Mean Corpuscular Volume 81.9 fl (81-99); Nucleated Red Blood Cells % 0 %; Platelet Count 379 K/mm3 (142-424); Red Blood Count 4.85 M/mm3 (4.20-5.40); Red Cell Distribution Width-SD 40.2 fL; White Blood Count 8.0 K/mm3 (4.8-10.8)
[2025-06-16 18:52] LABS: Alanine Aminotransferase 43 U/L (12-78); Albumin Level 4.8 g/dl (3.5-5.0); Albumin/Globulin Ratio 1.2 (1.1-1.8); Alkaline Phosphatase 57 U/L (38-126); Anion Gap 10.9 mEq/L (5-15); Aspartate Amino Transferase 39 U/L (14-36); Bilirubin,Total 0.6 mg/dl (0.2-1.3); Blood Urea Nitrogen 16 mg/dl (7-17); Calcium 9.5 mg/dl (8.4-10.2); Carbon Dioxide 26 mmol/L (22.0-30.0); Chloride 103 mmol/L (98-107); Creatinine Clearance Estimated 148 mL/min (50-200); Creatinine,Serum 0.70 mg/dl (0.52-1.04); Estimated Glomerular Filt Rate 99 ml/min (>60); GFR (African American) 120 ML/MIN (>60); Globulin 4.0 g/dL (1.3-3.2); Glucose 88 mg/dl (74-100); Potassium 3.9 mmoL/L (3.5-5.1); Sodium 136 mmol/L (136-145); Total Protein,Serum 8.8 g/dl (6.3-8.2)
[2025-06-16 18:53] LABS: Magnesium 2.0 mg/dl (1.6-2.3)
[2025-06-16 19:26] LABS: Thyroid Stimulating Hormone 1.80 uIU/mL (0.465-4.68)
[2025-06-16 19:29] LABS: Troponin I < 0.01 ng/ml (0.00-0.034)
--- NOTE | 2025-06-16 19:39 | PC.NURSE ---
I went in to room to introduce myslef to the pt. The patient asked what are we waiting on. I informed the pt that we were waiting for lab results and Arays. The pt then sasked if she could leave when her blood work came back. The pt's visitor stated we live in [place] and I am about to go home . I discussed this with Dr. Clark and he agreed to cancel the pt's Xrays. I informed the pt of the updated POC.
[2025-06-16 19:42] LABS: Free T4 (Free Thyroxine) 0.73 ng/dl (0.78-2.19)
== END 2025-06-16 20:05 | disposition home or self-care (01) ==
PROVIDERS: Emergency Provider Student in an Organized Health Care Education/Training Program
DX: M79.602 Pain in left arm (principal); R20.2 Paresthesia of skin; R79.89 Other specified abnormal findings of blood chemistry
CPT/HCPCS: 80053; 83735; 84439; 84443; 84484; 85025; 93005; 99283; 99285